=== PATIENT | male | born 1955 | race Caucasian/White ===

== ENCOUNTER 2021-04-15 00:24 | Inpatient (IN) | payer MEDICARE, OTHER ==
--- NOTE | 2021-04-15 00:44 | ED ---
Weakness HPI - General Stated complaint: Covid Time Seen by Provider: 04/15/21 00:30 Source: patient, EMS Mode of arrival: EMS Limitations: no limitations - History of Present Illness Initial comments: This patient is a 65-year-old man who is transferred here from [facility]. Patient had been transferred there from his long-term care facility as he was weaker than usual. They worked the patient up there he was found to have tested positive for covid 19 infection. He also was hyponatremic with a sodium 129. When I interview the patient, no complaints of pain or dyspnea. MD Complaint: generalized weakness, lack of energy, difficulty walking -: days(s) Location: generalized Improves with: none Worsens with: none - Related Data Allergies Allergy/AdvReac Type Severity Reaction Status Date / Time No Known Allergies Allergy Verified 04/15/21 00:36 Review of Systems ROS Statement: Those systems with pertinent positive or pertinent negative responses have been documented in the HPI. ROS Other: All systems not noted in ROS Statement are negative. Constitutional: Denies: fever Respiratory: Denies: cough, dyspnea Cardiovascular: Denies: chest pain Gastrointestinal: Denies: abdominal pain, vomiting, diarrhea Genitourinary: Denies: dysuria Musculoskeletal: Denies: back pain Skin: Denies: rash Neurological: Denies: headache, weakness Past Medical History Past Medical History: Dementia, Seizure Disorder Additional Past Medical History / Comment(s): parkinson, History of Any Multi-Drug Resistant Organisms: None Reported Past Surgical History: Orthopedic Surgery Past Psychological History: Unable to Obtain Smoking Status: Unknown if ever smoked Past Alcohol Use History: None Reported Past Drug Use History: None Reported General Exam Limitations: no limitations General appearance: alert, in no apparent distress Head exam: Present: atraumatic, normocephalic Eye exam: Present: normal appearance. Absent: scleral icterus, conjunctival injection ENT exam: Present: mucous membranes dry Neck exam: Present: normal inspection Respiratory exam: Present: rales. Absent: respiratory distress, wheezes, rhonchi, stridor, chest wall tenderness, accessory muscle use, decreased breath sounds, prolonged expiratory Cardiovascular Exam: Present: bradycardia, normal heart sounds. Absent: systo lic murmur, diastolic murmur, rubs, gallop GI/Abdominal exam: Present: soft. Absent: distended, tenderness, guarding, rebound, rigid, mass Extremities exam: Present: normal inspection, normal capillary refill. Absent: pedal edema, calf tenderness Back exam: Present: normal inspection Neurological exam: Present: alert. Absent: motor sensory deficit Skin exam: Present: warm, dry, intact, normal color. Absent: rash Course Vital Signs 04/15/21 00:25 Temperature 97.7 F Pulse Rate 54 L Respiratory 16 Rate Blood Pressure 109/72 O2 Sat by Pulse 100 Oximetry Disposition Clinical Impression: COVID-19, Hyponatremia, Generalized weakness Disposition: ADMITTED IP TO THIS HOSP Condition: Fair Is patient prescribed a controlled substance at d/c from ED?: No Referrals: Angel Thomas MD [Primary Care Provider] - 1-2 days
[2021-04-15] MEDS ORDERED: ACETAMINOPHEN TAB 325 MG TAB PO PRN (00:58)
[2021-04-15] MEDS ORDERED: NALOXONE 0.4 MG/ML 1 ML VIAL IV PRN (00:58)
[2021-04-15] MEDS ORDERED: SODIUM CHLORIDE 0.9% 500 ML 500 ML IV STA (01:00)
--- NOTE | 2021-04-15 02:55 | P.HPIM ---
History of Present Illness H&P Date: 04/15/21 Chief Complaint: Generalized weakness 65-year-old male with seizures, Parkinson disease, schizophrenia and dementia Patient is adult foster care house resident, he was found to have decreased by mouth intake over the past couple days with increased generalized weakness at b aseline he is able to stand up and walk without assistance over the past 2 days he is requiring increased assistance and today he was requiring 2 person assistance this is per the [facility] house definitely a change from his baseline no report of fevers or chills no reports of trouble breathing or upper respiratory infection symptoms no report of GI bleeding or changes in bowel or urinary habits however they are reporting decreased by mouth intake, no report of recent seizure activity Patient was sent to [facility] where he was evaluated found to have hyponatremia, lactic acidosis was within normal limits, pro calcitonin was slightly elevated at 0.12, he tested positive for coated and he was also found to have mild anemia. Chest x-ray showed no acute pathology soft for chronic changes, CT of the head showed chronic changes no acute pathology, EKG showed normal sinus rhythm Patient was transferred to our facility for further care as the adult foster care house refuses to take him back due to testing positive for covid Patient otherwise unable to provide any meaningful history at this time he only mumbles incomprehensible words Review of Systems ROS unobtainable: due to mental status Past Medical History Past Medical History: Dementia, Seizure Disorder Additional Past Medical History / Comment(s): parkinson, History of Any Multi-Drug Resistant Organisms: None Reported Past Surgical History: Orthopedic Surgery Past Psychological History: Unable to Obtain Smoking Status: Unknown if ever smoked Past Alcohol Use History: None Reported Past Drug Use History: None Reported Medications and Allergies Allergies Allergy/AdvReac Type Severity Reaction Status Date / Time No Known Allergies Allergy Verified 04/15/21 00:36 Physical Exam Vitals: Vital Signs Temp Pulse Resp BP Pulse Ox 04/15/21 00:25 97.7 F 54 L 16 109/72 100 Intake and Output 04/14/21 04/14/21 04/15/21 14:59 22:59 06:59 Other: Weight 66.224 kg Constitutional: No acute distress, pleasant and cooperative however he only mumbles incomprehensible words Eyes: Anicteric sclerae, moist conjunctiva, Pupils equal round reactive to light ENMT: NC/AT Oropharynx clear, no erythema, or exudates Neck: Supple, FROM, no masses, or JVD No carotid bruits No thyromegaly Lungs: Clear to auscultation Clear to percussion Normal respiratory effort, no accessory muscle use Cardiovascular: Heart regular in rate and rhythm, No murmurs, gallops, or rubs No peripheral edema Abdominal: Soft Nontender, no guarding, rebound or rigidity Abdomen moving with respiration Normoactive bowel sounds No hepatomegaly, No splenomegaly No palpable mass No abdominal wall hernia noted Skin: Normal temperature, tone, texture, turgor No induration No subcutaneous nodules No rash, lesions No ulcers Extremities: No digital cyanosis No clubbing Pedal pulses intact and symmetrical Radial pulses intact and symmetrical No calf tenderness Psychiatric: Alert and oriented to person, place Neuro Muscles Strength 5/5 in all 4 extremities Sensation to light touch grossly present throughout Cranial nerves II-XII grossly intact No focal sensory deficits Lymphatics: no palpable cervical or supraclavicular , or inguinal lymph nodes Assessment and Plan Assessment: Hyponatremia and dehydration secondary to decreased by mouth intake \History of seizure Covid positive Advanced dementia and Parkinson Mild anemia no reported GI bleeding Plan IV fluid hydration with normal saline Monitor electrolytes Fall and seizure precautions Supportive care Supplemental oxygen if needed Monitor hemoglobin Verify home medications PT/OT eval CODE STATUS: Full code DVT prophylaxis: Heparin subcu 3 times a day Discussed with: Patient, ER Anticipated length of stay < than [address]: [facility] A total of 60 minutes was spent on the care of this complex patient more than 50% of the time was spent in counseling and care coordination.
[2021-04-15] MEDS ORDERED: LORazepam 2 MG/ML INJ IV STA (03:29)
[2021-04-15] MEDS ORDERED: SODIUM CHLORIDE 0.9% 500 ML 500 ML IV ONE (04:29)
[2021-04-15] MEDS: LACOSAMIDE 50 MG TABLET PO SCH ×2 (09:20→20:25)
[2021-04-15] MEDS: lamoTRIgine 100 MG TAB PO SCH ×3 (09:20→20:25)
[2021-04-15] MEDS: FAMOTIDINE 20 MG TAB PO SCH ×2 (09:20→20:25)
[2021-04-15] MEDS: LEVOTHYROXINE 50 MCG TAB PO SCH (09:22)
[2021-04-15 11:24] LABS: Basophils # (A) 0.01 X 10*3/uL (0.00-0.10); Basophils % (A) 0.3 %; Eosinophils # (A) 0.01 X 10*3/uL (0.04-0.35); Eosinophils % (A) 0.3 %; HCT 35.9 % (39.6-50.0); HGB 11.6 g/dL (13.0-17.0); Lymphocytes # (A) 1.06 X 10*3/uL (0.90-5.00); Lymphocytes % (A) 33.1 %; MCH 29.8 pg (27.0-32.0); MCHC 32.3 g/dL (32.0-37.0); MCV 92.3 fL (80.0-97.0); Mean Platelet Volume 9.7 fL (9.5-12.2); Monocytes % (A) 12.5 %; Neutrophils # (A) 1.71 X 10*3/uL (1.80-7.70); Neutrophils % (A) 53.5 %; Platelet Count 149 X 10*3/uL (140-440); RBC 3.89 X 10*6/uL (4.40-5.60); RDW 12.6 % (11.5-14.5)
--- NOTE | 2021-04-15 12:13 | P.PN ---
Progress Note - Text Progress Note Date: 04/15/21 Patient seen and evaluated independently by me today, I agree with the assessment and plan as documented by my colleague earlier today with no changes.
[2021-04-15 14:01] LABS: Albumin 3.5 g/dL (3.80-4.90); Albumin/Globulin Ratio 1.67 (1.60-3.17); Anion Gap 8.8 mmol/L (4.00-12.00); BUN/Creat Ratio 11.43 Ratio (12.00-20.00); Calcium 8.4 mg/dL (8.7-10.3); Carbon Dioxide 23.2 mmol/L (21.6-31.8); Globulin 2.1 g/dL (1.6-3.3); Non-African American GFR(CKD) 98.3 (60.0-200.0); Potassium 4.2 mmol/L (3.5-5.5); Total Bilirubin 0.3 mg/dL (0.3-1.2); Total Protein 5.6 g/dL (6.2-8.2)
[2021-04-16] MEDS: LEVOTHYROXINE 50 MCG TAB PO SCH (06:11)
[2021-04-16 08:56] LABS: Basophils % (A) 0 %; Eosinophils % (A) 0 %; HCT 35.2 % (39.0-53.0); HGB 11.9 gm/dL (13.0-17.5); Lymphocytes # (A) 0.8 k/uL (1.0-4.8); Lymphocytes % (A) 25 %; MCH 30.1 pg (25.0-35.0); MCHC 33.7 g/dL (31.0-37.0); MCV 89.2 fL (80.0-100.0); Mean Platelet Volume 6.8; Monocytes # (A) 0.3 k/uL (0-1.0); Monocytes % (A) 10 %; Neutrophils % (A) 63 %; Platelet Count 171 k/uL (150-450); RBC 3.95 m/uL (4.30-5.90); RDW 12.5 % (11.5-15.5); WBC 3.1 k/uL (3.8-10.6)
[2021-04-16 09:03] LABS: African American GFR (CKD) >90 (>60 ml/min/1.73 sqM); Anion Gap 3 mmol/L; Blood Urea Nitrogen 11 mg/dL (9-20); Calcium 8.4 mg/dL (8.4-10.2); Carbon Dioxide 30 mmol/L (22-30); Chloride 99 mmol/L (98-107); Glucose 91 mg/dL (74-99); Non-African American GFR(CKD) >90 (>60 ml/min/1.73 sqM); Potassium 4.4 mmol/L (3.5-5.1); Sodium 132 mmol/L (137-145)
[2021-04-16] MEDS: FAMOTIDINE 20 MG TAB PO SCH ×2 (10:06→20:45)
[2021-04-16] MEDS: LACOSAMIDE 50 MG TABLET PO SCH ×2 (10:06→20:46)
[2021-04-16] MEDS: lamoTRIgine 100 MG TAB PO SCH ×3 (10:06→20:45)
[2021-04-16] MEDS ORDERED: ETODOLAC 400 MG TAB PO PRN (14:19)
[2021-04-16] MEDS ORDERED: ACETAMINOPHEN TAB 325 MG TAB PO PRN (14:19)
[2021-04-16] MEDS ORDERED: hydrOXYzine pamoate 25 MG CAP PO PRN (14:19)
--- NOTE | 2021-04-16 14:20 | P.PN ---
Subjective Progress Note Date: 04/16/21 No new complaints today, pending discharge. Objective - Vital Signs Vital signs: Vital Signs Temp 98.4 F 04/16/21 10:00 Pulse 95 04/16/21 10:00 Resp 16 04/16/21 10:00 BP 104/65 04/16/21 10:00 Pulse Ox 98 04/16/21 10:00 Intake & Output 04/15/21 04/16/21 04/16/21 18:59 06:59 18:59 Output Total 300 300 Balance -300 -300 Output: Urine 300 300 Other: Voiding Method Diaper Diaper Diaper Incontinent Incontinent Incontinent # Voids 1 1 - Exam Gen: awake, alert HEENT: normocephalic, atraumatic, good hearing acuity, moist mucous membranes Resp: good air exchange, breathing comfortably with no accessory muscle use CVS: good distal perfusion x 4, GI: soft, NTTP, ND : no SPT, no CVAT, rios catheter not present MSK: no pitting edema, no clubbing Neuro: non-focal, moving all extremities Psych: cooperative, euthymic mood - Labs CBC & Chem 7: 04/16/21 08:20 04/16/21 08:20 Labs: Abnormal Lab Results - Last 24 Hours (Table) 04/15/21 04/16/21 04/16/21 Range/Units 18:00 08:20 08:20 WBC 3.1 L (3.8-10.6) k/uL RBC 3.95 L (4.30-5.90) m/uL Hgb 11.9 L (13.0-17.5) gm/dL Hct 35.2 L (39.0-53.0) % Lymphocytes # 0.8 L (1.0-4.8) k/uL Sodium 132 L (137-145) mmol/L Coronavirus (PCR) Detected A (Not Detectd) Assessment and Plan Assessment: Hyponatremia and dehydration secondary to decreased by mouth intake \History of seizure Covid positive Advanced dementia and Parkinson Mild anemia no reported GI bleeding Plan IV fluid hydration with normal saline Monitor electrolytes Fall and seizure precautions Supportive care Supplemental oxygen if needed Monitor hemoglobin Plan is for patient to return to [facility] home with hospice. Home meds reviewed and reconciled. PT/OT eval CODE STATUS: Full code DVT prophylaxis: Heparin subcu 3 times a day Discussed with: Patient, ER Anticipated length of stay < than [address]: [facility]
[2021-04-16] MEDS: BETHANECHOL 10 MG TAB PO SCH ×2 (16:11→20:45)
[2021-04-16] MEDS: chlorproMAZINE 25 MG TAB PO SCH ×2 (16:11→20:46)
[2021-04-16] MEDS: BENZTROPINE MESYLATE 1 MG TAB PO SCH (20:45)
[2021-04-16] MEDS: MELATONIN 3 MG TABLET PO SCH (20:46)
[2021-04-17] MEDS ORDERED: FAMOTIDINE 20 MG TAB PO SCH (07:00)
[2021-04-17] MEDS: LACOSAMIDE 50 MG TABLET PO SCH ×2 (10:05→21:12)
[2021-04-17] MEDS: lamoTRIgine 100 MG TAB PO SCH ×3 (10:05→21:13)
[2021-04-17] MEDS: LEVOTHYROXINE 50 MCG TAB PO SCH (10:05)
[2021-04-17] MEDS: BETHANECHOL 10 MG TAB PO SCH ×3 (10:06→21:13)
[2021-04-17] MEDS: TAMSULOSIN 0.4 MG CAP.ER.24H PO SCH (10:06)
[2021-04-17] MEDS: MULTIVITAMINS, THERA 1 EACH TAB PO SCH (10:06)
[2021-04-17] MEDS: CHOLECALCIFEROL 25 MCG (1000 IU) TABLET PO SCH (10:06)
[2021-04-17] MEDS: FAMOTIDINE 20 MG TAB PO SCH ×2 (10:06→21:13)
[2021-04-17] MEDS: BENZTROPINE MESYLATE 1 MG TAB PO SCH ×2 (10:07→21:12)
[2021-04-17] MEDS: chlorproMAZINE 25 MG TAB PO SCH ×3 (10:07→21:12)
--- NOTE | 2021-04-17 13:21 | P.PN ---
Subjective Progress Note Date: 04/17/21 No new complaints. Discharge pending. Objective - Vital Signs Vital signs: Vital Signs Temp 97.5 F L 04/17/21 10:00 Pulse 65 04/17/21 10:00 Resp 20 04/17/21 10:00 BP 126/68 04/17/21 10:00 Pulse Ox 95 04/17/21 10:00 Intake & Output 04/16/21 04/17/21 04/17/21 18:59 06:59 18:59 Intake Total 1080 Balance 1080 Intake: Oral 1080 Other: Voiding Method Diaper Diaper Diaper Incontinent Incontinent Incontinent # Voids 2 3 - Exam Gen: awake, alert HEENT: normocephalic, atraumatic, good hearing acuity, moist mucous membranes Resp: good air exchange, breathing comfortably with no accessory muscle use CVS: good distal perfusion x 4, GI: soft, NTTP, ND : no SPT, no CVAT, rios catheter not present MSK: no pitting edema, no clubbing Neuro: non-focal, moving all extremities Psych: cooperative, euthymic mood - Labs CBC & Chem 7: 04/16/21 08:20 04/16/21 08:20 Assessment and Plan Assessment: Hyponatremia and dehydration secondary to decreased by mouth intake History of seizure Covid positive Advanced dementia and Parkinson Mild anemia no reported GI bleeding Plan IV fluid hydration with normal saline --> PO intake Monitor electrolytes daily Fall and seizure precautions Supportive care Supplemental oxygen if needed Monitor hemoglobin Plan is for patient to return to [facility] with hospice. Home meds reviewed and reconciled. PT/OT eval CODE STATUS: Full code DVT prophylaxis: Heparin subcu 3 times a day Discussed with: Patient, ER Anticipated length of stay < than [address]: [facility] with hospice
[2021-04-17] MEDS: MELATONIN 3 MG TABLET PO SCH (21:13)
[2021-04-17] MEDS ORDERED: SODIUM CHLORIDE 0.9% 500 ML 500 ML IV ONE (22:21)
[2021-04-18] MEDS: CHOLECALCIFEROL 25 MCG (1000 IU) TABLET PO SCH (08:21)
[2021-04-18] MEDS: MULTIVITAMINS, THERA 1 EACH TAB PO SCH (08:21)
[2021-04-18] MEDS: LEVOTHYROXINE 50 MCG TAB PO SCH (08:22)
[2021-04-18] MEDS: TAMSULOSIN 0.4 MG CAP.ER.24H PO SCH (08:22)
[2021-04-18] MEDS: lamoTRIgine 100 MG TAB PO SCH ×3 (08:22→21:13)
[2021-04-18] MEDS: FAMOTIDINE 20 MG TAB PO SCH ×2 (08:22→21:11)
[2021-04-18] MEDS: LACOSAMIDE 50 MG TABLET PO SCH ×2 (08:22→21:12)
[2021-04-18] MEDS: BETHANECHOL 10 MG TAB PO SCH ×3 (09:35→21:12)
[2021-04-18] MEDS: chlorproMAZINE 25 MG TAB PO SCH ×3 (09:35→21:12)
[2021-04-18] MEDS: BENZTROPINE MESYLATE 1 MG TAB PO SCH ×2 (09:35→21:11)
--- NOTE | 2021-04-18 16:06 | P.PN ---
Subjective Progress Note Date: 04/18/21 (delayed charting seen at 0940) Principal diagnosis: fatigue Patient is a 65 showed male with a history of schizophrenia, dementia, Parkinson's, and seizure disorder who presented as a transfer from [facility] secondary to COVID-19 infection. He initially presented there secondary to poor oral intake and lethargy. He was found to be COVID-19 positive, hyponatremic, and had lactic acidosis. His CXR showed no acute process. CT ea showed no acute pathology. He was transferred here and started on IVF. His legal guardian has decided on hospice care and awaiting transfer to [facility]. Patient seen and examined at bedside. His speech is very hard to comprehend but he does answer yes to pain and points toward his hip. He follows simple commands such as taking a deep breath. General: no distress, appears older than stated age, thin, temporal wasting Derm: warm, dry Head: atraumatic, normocephalic, symmetric Eyes: EOMI, no lid lag, anicteric sclera Mouth: no lip lesion, mucus membranes moist Cardiovascular: S1S2 reg, no murmur, positive posterior tibial pulse bilateral, Lungs: Decreased bs bilateral , no accessory muscle use Abdominal: soft, nontender to palpation, no guarding, no appreciable organomegaly Ext: no gross muscle atrophy, no edema, no contractures Neuro: no tremors, moving all 4 extremities idependently Psych: awakre, alert to self COVID-19 positive - Patient has not been hypoxic and therefore does not meet criteria for dexamethasone, Remdesivir, or other treatments. 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 Objective - Vital Signs Vital signs: Vital Signs Temp 99.7 F H 04/18/21 14:00 Pulse 95 04/18/21 14:00 Resp 16 04/18/21 14:00 BP 104/63 04/18/21 14:00 Pulse Ox 95 04/18/21 14:00 Intake & Output 04/17/21 04/18/21 04/18/21 18:59 06:59 18:59 Output Total 200 Balance -200 Output: Urine 200 Other: Voiding Method Diaper Diaper Diaper Incontinent Incontinent Incontinent # Voids 2 1 - Labs CBC & Chem 7: 04/16/21 08:20 04/16/21 08:20
[2021-04-18] MEDS: MELATONIN 3 MG TABLET PO SCH (21:11)
[2021-04-18 22:27] LABS: HCT 31.5 % (39.6-50.0); HGB 10.4 g/dL (13.0-17.0); MCV 90.8 fL (80.0-97.0); Mean Platelet Volume 9.4 fL (9.5-12.2); Platelet Count 192 X 10*3/uL (140-440); RBC 3.47 X 10*6/uL (4.40-5.60); RDW 12.6 % (11.5-14.5); WBC 13.46 X 10*3/uL (4.50-10.00)
[2021-04-18 23:19] LABS: Albumin 3.2 g/dL (3.80-4.90); Albumin/Globulin Ratio 1.52 (1.60-3.17); Anion Gap 5.2 mmol/L (4.00-12.00); BUN/Creat Ratio 25.71 Ratio (12.00-20.00); C Reactive Protein 4.5 mg/dL (0.0-0.8); Calcium 8.4 mg/dL (8.7-10.3); Carbon Dioxide 30.8 mmol/L (21.6-31.8); Globulin 2.1 g/dL (1.6-3.3); Non-African American GFR(CKD) 98.3 (60.0-200.0); Potassium 4.1 mmol/L (3.5-5.5); Total Bilirubin 0.4 mg/dL (0.3-1.2); Total Protein 5.3 g/dL (6.2-8.2)
[2021-04-19] MEDS ORDERED: SODIUM CHLORIDE 0.9% 1,000 ML IV ONE (03:46)
[2021-04-19] MEDS: MULTIVITAMINS, THERA 1 EACH TAB PO SCH (09:14)
[2021-04-19] MEDS: FAMOTIDINE 20 MG TAB PO SCH ×2 (09:14→23:10)
[2021-04-19] MEDS: LACOSAMIDE 50 MG TABLET PO SCH ×2 (09:14→23:11)
[2021-04-19] MEDS: TAMSULOSIN 0.4 MG CAP.ER.24H PO SCH (09:15)
[2021-04-19] MEDS: lamoTRIgine 100 MG TAB PO SCH ×3 (09:15→23:10)
[2021-04-19] MEDS: LEVOTHYROXINE 50 MCG TAB PO SCH (09:15)
[2021-04-19] MEDS: BETHANECHOL 10 MG TAB PO SCH ×3 (09:15→17:27)
[2021-04-19] MEDS: CHOLECALCIFEROL 25 MCG (1000 IU) TABLET PO SCH (09:15)
[2021-04-19] MEDS: chlorproMAZINE 25 MG TAB PO SCH ×4 (09:15→23:13)
[2021-04-19] MEDS: BENZTROPINE MESYLATE 1 MG TAB PO SCH ×3 (09:15→23:12)
[2021-04-19] MEDS: ENOXAPARIN 40 MG/0.4 ML SYRINGE SQ SCH (09:16)
--- NOTE | 2021-04-19 14:45 | P.PN ---
Subjective Progress Note Date: 04/19/21 (delayed charting seen at 0730) Principal diagnosis: fatigue Patient is a 65 showed male with a history of schizophrenia, dementia, Parkinson's, and seizure disorder who presented as a transfer from [facility] secondary to COVID-19 infection. He initially presented there secondary to poor oral intake and lethargy. He was found to be COVID-19 positive, hyponatremic, and had lactic acidosis. His CXR showed no acute process. CT ea showed no acute pathology. He was transferred here and started on IVF. His legal guardian has decided on hospice care and awaiting transfer to hospice [place]. Patient seen and examined at bedside. Denies pain, lifts arms to indicate that he wants to be left alone and no longer interacts. General: no distress, appears older than stated age, thin, temporal wasting Derm: warm, dry Head: atraumatic, normocephalic, symmetric Eyes: EOMI, no lid lag, anicteric sclera Mouth: no lip lesion, mucus membranes moist Cardiovascular: S1S2 reg, no murmur, positive posterior tibial pulse bilateral, Lungs: Decreased bs bilateral , no accessory muscle use Abdominal: soft, nontender to palpation, no guarding, no appreciable organome jun Ext: no gross muscle atrophy, no edema, no contractures Neuro: no tremors, moving all 4 extremities idependently Psych: sleeping, alert to self COVID-19 positive - Patient has not been hypoxic and therefore does not meet criteria for dexamethasone, Remdesivir, or other treatments. 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 Anticipated discharge place: Hospice House A total of 35 minutes was spent on the care of this complex patient more than 50% of the time was spent in counseling and care coordination. Objective - Vital Signs Vital signs: Vital Signs Temp 98 F 04/19/21 14:28 Pulse 97 04/19/21 14:28 Resp 14 04/19/21 14:28 BP 94/60 04/19/21 14:28 Pulse Ox 95 04/19/21 14:28 Intake & Output 04/18/21 04/19/21 04/19/21 18:59 06:59 18:59 Other: Voiding Method Diaper Diaper Diaper Incontinent Incontinent Incontinent # Voids 3 2 - Labs CBC & Chem 7: 04/18/21 17:01 04/18/21 17:01 Labs: Abnormal Lab Results - Last 24 Hours (Table) 04/18/21 04/18/21 04/18/21 Range/Units 17:01 17:01 17:01 WBC 13.46 H (4.50-10.00) X 10*3/uL RBC 3.47 L (4.40-5.60) X 10*6/uL Hgb 10.4 L (13.0-17.0) g/dL Hct 31.5 L (39.6-50.0) % MPV 9.4 L (9.5-12.2) fL D-Dimer 0.69 H (<0.60) mg/L FEU BUN/Creatinine Ratio 25.71 H (12.00-20.00) Ratio Glucose 125 H (70-110) mg/dL Calcium 8.4 L (8.7-10.3) mg/dL AST 39 H (14-35) U/L C-Reactive Protein 4.5 H (0.0-0.8) mg/dL Total Protein 5.3 L (6.2-8.2) g/dL Albumin 3.20 L (3.80-4.90) g/dL Albumin/Globulin Ratio 1.52 L (1.60-3.17) g/dL
--- NOTE | 2021-04-19 21:16 | CT ---
EXAMINATION TYPE: CT brain wo con DATE OF EXAM: 04/19/2021 COMPARISON: 04/14/2021 INDICATION: Fall, change in mental status, r/o bleed. Pt very combative, meds not administered becaus e of fall. Would not stay still despite velcro seatbelts and verbal commands. Had to attempt 2 scans. Images prior to recon sent in error. Reconed images done DLP: 2902.4 mGycm, Automated exposure control for dose reduction was used. CONTRAST: None CT of the brain is performed utilizing 3 mm thick sections through the posterior fossa and 3 mm thick sections through the remaining calvarium. Study is performed within 24 hours of arrival to the hosp ital. Exam is extremely limited due to the combative nature of the patient. Best possible reconstructed bisi ges are presented. No abnormal hyperdensity is present to suggest an acute intracranial hemorrhage. No mass lesion is evident. No acute infarcts are evident. Ventricles and sulci are prominent for the patient age. Paranasal sinuses and mastoid air cells within the [id number] are clear. IMPRESSIONS: 1. No obvious acute intracranial abnormality is identified. However, examination is very limited du e to the combative nature of the patient at the time of this examination.
[2021-04-19] MEDS: MELATONIN 3 MG TABLET PO SCH (23:09)
[2021-04-20] MEDS: BETHANECHOL 10 MG TAB PO SCH ×4 (02:39→20:01)
[2021-04-20] MEDS: BENZTROPINE MESYLATE 1 MG TAB PO SCH ×2 (09:37→19:59)
[2021-04-20] MEDS: CHOLECALCIFEROL 25 MCG (1000 IU) TABLET PO SCH (09:38)
[2021-04-20] MEDS: chlorproMAZINE 25 MG TAB PO SCH ×3 (09:38→20:00)
[2021-04-20] MEDS: FAMOTIDINE 20 MG TAB PO SCH ×2 (09:38→20:00)
[2021-04-20] MEDS: LACOSAMIDE 50 MG TABLET PO SCH ×2 (09:38→20:01)
[2021-04-20] MEDS: LEVOTHYROXINE 50 MCG TAB PO SCH (09:41)
[2021-04-20] MEDS: MULTIVITAMINS, THERA 1 EACH TAB PO SCH (09:41)
[2021-04-20] MEDS: TAMSULOSIN 0.4 MG CAP.ER.24H PO SCH (09:41)
[2021-04-20] MEDS: lamoTRIgine 100 MG TAB PO SCH ×3 (09:41→19:59)
[2021-04-20] MEDS: ENOXAPARIN 40 MG/0.4 ML SYRINGE SQ SCH (09:42)
[2021-04-20] MEDS: MELATONIN 3 MG TABLET PO SCH (20:01)
--- NOTE | 2021-04-20 20:35 | P.PN ---
Progress Note - Text Progress Note Date: 04/20/21 Presenting complaint: fatigue Hospital course Patient is a 65 -year-old male with a history of schizophrenia, dementia, Parkinson's, and seizure disorder who presented as a transfer from [facility] secondary to COVID-19 infection. He initially presented there secondary to poor oral intake and lethargy. He was found to be COVID-19 positive, hyponatremic, and had lactic acidosis. His CXR showed no acute process. CT ea showed no acute pathology. He was transferred here and started on IVF. His legal guardian has decided on hospice care and awaiting transfer to hospice house. Today: Spoke to the nurse. Patient actually ate some pancakes for breakfast today. His communicating a bit. Tired. Review of systems: Attempted for constitutional, cardiovascular, GI, pulmonary. relevant finding as above Active Medications Acetaminophen (Acetaminophen Tab 325 Mg Tab) 650 mg PO Q6H PRN PRN Reason: Mild Pain or Fever > 100.5 Benztropine Mesylate (Benztropine Mesylate 1 Mg Tab) 2 mg PO BID@0700,1900 [facility] Last Admin: 04/20/21 19:59 Dose: 2 mg Documented by: Bethanechol Chloride (Bethanechol 10 Mg Tab) 10 mg PO TID@0700,1500,1900 [facility] Last Admin: 04/20/21 20:01 Dose: 10 mg Documented by: Chlorpromazine HCl (Chlorpromazine 25 Mg Tab) 50 mg PO TID@0700,1500,1900 [facility] Last Admin: 04/20/21 20:00 Dose: 50 mg Documented by: Cholecalciferol (Cholecalciferol 25 Mcg (1000 Iu) Tablet) 50 mcg PO DAILY@0700 [facility] Last Admin: 04/20/21 09:38 Dose: 50 mcg Documented by: Enoxaparin Sodium (Enoxaparin 40 Mg/0.4 Ml Syringe) 40 mg SQ DAILY [facility] Last Admin: 04/20/21 09:42 Dose: Not Given Documented by: Etodolac (Etodolac 400 Mg Tab) 400 mg PO TID PRN PRN Reason: Pain Famotidine (Famotidine 20 Mg Tab) 20 mg PO BID [facility] Last Admin: 04/20/21 20:00 Dose: 20 mg Documented by: Hydroxyzine Pamoate (Hydroxyzine Pamoate 25 Mg Cap) 50 mg PO Q6H PRN PRN Reason: ANXIETY ATTACKS Lacosamide (Lacosamide 50 Mg Tablet) 200 mg PO BID@0700,1900 [facility] Last Admin: 04/20/21 20:01 Dose: 200 mg Documented by: Lamotrigine (Lamotrigine 100 Mg Tab) 200 mg PO TID@0700,1500,1900 [facility] Last Admin: 04/20/21 19:59 Dose: 200 mg Documented by: Levothyroxine Sodium (Levothyroxine 50 Mcg Tab) 50 mcg PO DAILY@0700 [facility] Last Admin: 04/20/21 09:41 Dose: 50 mcg Documented by: Melatonin (Melatonin 3 Mg Tablet) 3 mg PO HS@1900 [facility] Last Admin: 04/20/21 20:01 Dose: 3 mg Documented by: Multivitamins (Multivitamins, Thera 1 Each Tab) 1 each PO DAILY@0700 [facility] Last Admin: 04/20/21 09:41 Dose: 1 each Documented by: Naloxone HCl (Naloxone 0.4 Mg/Ml 1 Ml Vial) 0.2 mg IV Q2M PRN PRN Reason: Opioid Reversal Tamsulosin HCl (Tamsulosin 0.4 Mg Cap.Er.24h) 0.4 mg PO DAILY@0700 [facility] Last Admin: 04/20/21 09:41 Dose: 0.4 mg Documented by: Vitals: 98.5, 91, 16, 105/62, 97% room air General: no distress, lethargic, thin, temporal wasting Eyes: Pupils equal, pale conjunctiva Rest of the exam as per nursing Investigations: WBC 13.4 hemoglobin 10.4 platelets 192 potassium 4.1 creatinine 0.7 albumin 3.2 Assessment and plan: COVID-19 positive - Patient has not been hypoxic and therefore does not meet criteria for dexamethasone, Remdesivir, or other treatments. - Lovenox, Vit D Schizophrenia with extra paramadial side effects - thorazine, Cogentin, vistaril Major cognitive impairment, from dementia Sizure disorder - vimpat, laictal Hypothyroidism - synthroid Hyponatremia, dehydration-improved Acute on chronic medical debility Fall precautions No code Discussed with Ann the case sealer. Pending paperwork clearance from [facility]. Continue current medication treatment plan.
[2021-04-21 08:11] VITALS: RESP 16
[2021-04-21] MEDS: lamoTRIgine 100 MG TAB PO SCH (09:53)
[2021-04-21] MEDS: chlorproMAZINE 25 MG TAB PO SCH (09:53)
[2021-04-21] MEDS: BETHANECHOL 10 MG TAB PO SCH (09:53)
[2021-04-21] MEDS: LACOSAMIDE 50 MG TABLET PO SCH (09:53)
[2021-04-21] MEDS: BENZTROPINE MESYLATE 1 MG TAB PO SCH (09:53)
[2021-04-21] MEDS: CHOLECALCIFEROL 25 MCG (1000 IU) TABLET PO SCH (09:53)
[2021-04-21] MEDS: LEVOTHYROXINE 50 MCG TAB PO SCH (09:54)
[2021-04-21] MEDS: ENOXAPARIN 40 MG/0.4 ML SYRINGE SQ SCH (09:54)
[2021-04-21] MEDS: TAMSULOSIN 0.4 MG CAP.ER.24H PO SCH (09:54)
[2021-04-21] MEDS: MULTIVITAMINS, THERA 1 EACH TAB PO SCH (09:54)
[2021-04-21] MEDS: FAMOTIDINE 20 MG TAB PO SCH (09:54)
[2021-04-21 16:11] VITALS: BMI 23.6
[2021-04-21 16:46] VITALS: BP 123/61; PULSE 75; TEMP 98.3
--- NOTE | 2021-04-21 19:56 | P.DS ---
Providers Date of admission: 04/15/21 00:58 Expected date of discharge: 04/21/21 Attending physician: Dmitriy Talley Primary care physician: Angel [facility] Course: Presenting complaint: fatigue Hospital course Patient is a 65 -year-old male with a history of schizophrenia, dementia, Parkinson's, and seizure disorder who presented as a transfer from [facility] secondary to COVID-19 infection. He initially presented there secondary to poor oral intake and lethargy. He was found to be COVID-19 positive, hyponatremic, and had lactic acidosis. His CXR showed no acute process. CT ea showed no acute pathology. He was transferred here and started on IVF. His legal guardian has decided on hospice care and awaiting transfer to [facility]. Today: Eating a bit. Answering questions. Tired. Patient related to the [facility] later today. Vitals: 98.3, 75, 16, 1 23 x 61, 97% room air General: no distress, lethargic, thin, temporal wasting Eyes: Pupils equal, pale conjunctiva Psychiatry: Answering simple questions Neurological: Moving all 4 limbs. No facial asymmetry Rest of the exam as per nursing Investigations: WBC 13.4 hemoglobin 10.4 platelets 192 potassium 4.1 creatinine 0.7 albumin 3.2 Assessment and plan: COVID-19 positive - Patient has not been hypoxic and therefore does not meet criteria for dexamethasone, Remdesivir, or other treatments. - Lovenox, Vit D Schizophrenia with extra paramadial side effects - thorazine, Cogentin, vistaril Major cognitive impairment, from dementia Sizure disorder - vimpat, laictal Hypothyroidism - synthroid Hyponatremia, dehydration-improved Acute on chronic medical debility Fall precautions No code Disposition: Hospice at [facility] Plan - Discharge Summary New Discharge Prescriptions: Continue hydrOXYzine pamoate [Vistaril] 50 mg PO Q6H PRN PRN Reason: ANXIETY ATTACKS Famotidine [Pepcid] 20 mg PO DAILY@0700 Bethanechol [Urecholine] 10 mg PO TID@0700,1500,1900 Acetaminophen Tab [Tylenol] 650 mg PO Q6H PRN PRN Reason: Pain Or Fever > 100.5 lamoTRIgine [LaMICtal] 200 mg PO TID@0700,1500,1900 Tamsulosin HCl [Flomax] 0.4 mg PO DAILY@0700 Benztropine Mesylate [Cogentin] 2 mg PO BID@0700,1900 Melatonin 3 mg PO HS@1900 Ketorolac [Toradol] 10 mg PO Q6HR PRN PRN Reason: Pain Lacosamide [Vimpat] 200 mg PO BID@0700,1900 chlorproMAZINE HCL [Thorazine] 50 mg PO TID@0700,1500,1900 Levothyroxine Sodium [Synthroid] 50 mcg PO DAILY@0700 Discontinued Multivits,Th W-Ca,Fe,Oth Min [Therapeutic M] 1 tab PO DAILY@0700 Cholecalciferol [Vitamin D3 (25 Mcg = 1000 Iu)] 50 mcg PO DAILY@0700 Discharge Medication List Acetaminophen Tab [Tylenol] 650 mg PO Q6H PRN 04/15/21 [History] Benztropine Mesylate [Cogentin] 2 mg PO BID@0700,1900 04/15/21 [History] Bethanechol [Urecholine] 10 mg PO TID@0700,1500,19004/15/21 [History] Famotidine [Pepcid] 20 mg PO DAILY@0700 04/15/21 [History] Ketorolac [Toradol] 10 mg PO Q6HR PRN 04/15/21 [History] Lacosamide [Vimpat] 200 mg PO BID@0700,1900 04/15/21 [History] Levothyroxine Sodium [Synthroid] 50 mcg PO DAILY@0700 04/15/21 [History] Melatonin 3 mg PO HS@1900 04/15/21 [History] Tamsulosin HCl [Flomax] 0.4 mg PO DAILY@0700 04/15/21 [History] chlorproMAZINE HCL [Thorazine] 50 mg PO TID@0700,1500,1900 04/15/21 [History] hydrOXYzine pamoate [Vistaril] 50 mg PO Q6H PRN 04/15/21 [History] lamoTRIgine [LaMICtal] 200 mg PO TID@0700,1500,1900 04/15/21 [History] Follow up Appointment(s)/Referral(s): [facility] [REFERRING] - As Needed Angel Thomas MD [Primary Care Provider] - 1-2 days Patient Instructions/Handouts: Coronavirus Disease 2019 (COVID-19), Hospice (DC) Discharge Disposition: DISCH TO HOSPICE MED FACILTY
== END 2021-04-21 17:25 | disposition hospice, inpatient (51) | DRG 178 ==
LOC: EC 00:24 → EEVIPCON 00:58 → 4SSUR 00:58
PROVIDERS: ADMIT Hospitalist; ATTEND Hospitalist
DX: U07.1 COVID-19 (principal); E87.1 Hypo-osmolality and hyponatremia; E87.2 Acidosis; G20 Parkinson's disease; F20.9 Schizophrenia, unspecified; D64.9 Anemia, unspecified; F02.80 Dementia in other diseases classified elsewhere, unspecified severity, without behavioral disturbance, psychotic disturbance, mood disturbance, and anxiety; E86.0 Dehydration; E03.9 Hypothyroidism, unspecified; Z51.5 Encounter for palliative care; G40.909 Epilepsy, unspecified, not intractable, without status epilepticus
CPT/HCPCS: 70450; 80048; 80053; 83615; 85025; 85027; 85379; 86140; 87635; 99285